=== PATIENT | male | born 1970 | race Caucasian/White ===

== ENCOUNTER 2024-05-28 06:21 | Day surgery (SDC) | payer BC ==
[2024-05-20 15:02] VITALS: BMI 38.0
[2024-05-28] MEDS ORDERED: Bacitracin Zinc Ointment 30 gm TUBE ONE (06:27)
[2024-05-28] MEDS ORDERED: EPINEPHrine 1 MG/ML VIAL ONE (06:27)
[2024-05-28] MEDS ORDERED: Lidocaine 1% (PF) 30 ML VIAL ONE (06:27)
[2024-05-28] MEDS ORDERED: Oxymetazoline HCl 0.05% (30 ML BOT) ONE ×2 (06:32→06:45)
[2024-05-28] MEDS ORDERED: Rocuronium Bromide 10 MG/ML (10ML VIAL) ONE (08:08)
[2024-05-28] MEDS ORDERED: fentaNYL PF 100 MCG/2 ML SYRINGE ONE (08:08)
[2024-05-28] MEDS ORDERED: PROPOFOL 200 MG/20 ML VIAL ONE (08:28)
[2024-05-28] MEDS ORDERED: Dexamethasone 20 MG/5 ML VIAL ONE (08:34)
[2024-05-28] MEDS ORDERED: Ondansetron PF 4 MG/2 ML Vial ONE (08:34)
[2024-05-28] MEDS ORDERED: SUGAMMADEX SODIUM 200 MG/2 ML VIAL ONE (08:46)
[2024-05-28] MEDS ORDERED: fentaNYL 50 mcg/mL 1 mL Vial ONE ×3 (09:41→10:07)
[2024-05-28] MEDS ORDERED: HYDROcodone/Acetaminophen 5/325 mg Tablet ONE (10:23)
[2024-05-28] MEDS ORDERED: hydrALAZINE 20 MG/ML VIAL ONE (10:58)
== END 2024-05-28 11:39 | disposition home or self-care (01) ==
LOC: SDC 06:21
PROVIDERS: ATTEND Otolaryngology Plastic Surgery within the Head & Neck
PROC: 09TV8ZZ Resection of Left Ethmoid Sinus, Via Natural or Artificial Opening Endoscopic (ICD-10-PCS; principal; 2024-05-28)
PROC: 09TX8ZZ Resection of Left Sphenoid Sinus, Via Natural or Artificial Opening Endoscopic (ICD-10-PCS; principal; 2024-05-28)
PROC: 09TT8ZZ Resection of Left Frontal Sinus, Via Natural or Artificial Opening Endoscopic (ICD-10-PCS; principal; 2024-05-28)
PROC: 09TW8ZZ Resection of Right Sphenoid Sinus, Via Natural or Artificial Opening Endoscopic (ICD-10-PCS; principal; 2024-05-28)
PROC: 09TQ8ZZ Resection of Right Maxillary Sinus, Via Natural or Artificial Opening Endoscopic (ICD-10-PCS; principal; 2024-05-28)
PROC: 09TS8ZZ Resection of Right Frontal Sinus, Via Natural or Artificial Opening Endoscopic (ICD-10-PCS; principal; 2024-05-28)
PROC: 09TL8ZZ Resection of Nasal Turbinate, Via Natural or Artificial Opening Endoscopic (ICD-10-PCS; principal; 2024-05-28)
PROC: 09TR8ZZ Resection of Left Maxillary Sinus, Via Natural or Artificial Opening Endoscopic (ICD-10-PCS; principal; 2024-05-28)
PROC: 09TU8ZZ Resection of Right Ethmoid Sinus, Via Natural or Artificial Opening Endoscopic (ICD-10-PCS; principal; 2024-05-28)
PROC: 09BM3ZZ Excision of Nasal Septum, Percutaneous Approach (ICD-10-PCS; principal; 2024-05-28)
DX: J34.2 Deviated nasal septum (principal); J32.8 Other chronic sinusitis; J34.3 Hypertrophy of nasal turbinates; J34.89 Other specified disorders of nose and nasal sinuses
CPT/HCPCS: J0171; J0360; J1100; J2001; J2405; J2704; J3010